=== PATIENT | male | born 1965 | race Caucasian/White ===

== ENCOUNTER 2017-10-14 19:10 | Inpatient (IN) | payer SELFPAY ==
[~2017-10-14] VITALS: Ht 175.3 cm; Wt 90.5 kg
[2017-10-14] MEDS ORDERED: SODIUM CHLORIDE 0.9% 1000ML BAG (SEPSIS BOLUS) IV ONE (20:00)
[2017-10-14 20:54] LABS: HEMATOCRIT. 34.4 % (42.0-52.0); HEMOGLOBIN. 11.9 g/dL (14.0-18.0); MEAN CORPUSCULAR HEMOGLOBIN 31.1 pg (28.0-32.0); MEAN CORPUSCULAR VOLUME 89.9 fL (80.0-94.0); MEAN PLATELET VOLUME 7.9 fl (7.4-10.4); PLATELET 463 x1000/uL (130-400); RED BLOOD CELL COUNT 3.82 mill/uL (4.7-6.1); RED CELL DISTRIBUTION WIDTH 13.6 % (11.6-14.6)
[2017-10-14 20:57] LABS: CHLORIDE 90 mEq/L (98-107)
[2017-10-14 20:59] LABS: INR 1.3; PROTHROMBIN TIME 12.8 sec (9.1-11.1)
[2017-10-14] MEDS ORDERED: CEFTRIAXONE 1 G PREMIX 50 ML IV ONE (21:00)
[2017-10-14] MEDS ORDERED: AZITHROMYCIN 500 MG in DEXT 5% WATER 250 ML IV ONE (21:00)
[2017-10-14 21:25] LABS: PLATELET ESTIMATE INCREASED
[2017-10-14 22:49] LABS: CLARITY URINE CLEAR (CLEAR); COLOR URINE YELLOW (YELLOW); KETONES URINE NEGATIVE (NEGATIVE); LEUKOCYTE ESTERASE URINE NEGATIVE (NEGATIVE); NITRITE URINE NEGATIVE (NEGATIVE); OCCULT BLOOD URINE NEGATIVE (NEGATIVE); PH URINE 6.5 (4.5-8.0); PROTEIN URINE NEGATIVE (NEGATIVE); SPECIFIC GRAVITY URINE 1.009 (1.005-1.030); UROBILINOGEN URINE 0.2 E.U./dL (0.2-1.0)
[2017-10-14] MEDS ORDERED: IPRATROPIUM/ALBUTEROL 0.5-3(2.5)MG/3ML NEB INH PRN (23:00)
[2017-10-14] MEDS ORDERED: AZITHROMYCIN 500 MG in DEXT 5% WATER 250 ML IV SCH (23:00)
[2017-10-14] MEDS ORDERED: DIPHENHYDRAMINE 50MG/ML VIAL IV PRN (23:00)
[2017-10-14] MEDS ORDERED: ACETAMINOPHEN 650MG/20.3ML UDC GT PRN (23:00)
[2017-10-14] MEDS ORDERED: HYDROCODONE/ACETAMINOPHEN 10/325MG TABLET PO PRN (23:00)
[2017-10-14] MEDS ORDERED: ONDANSETRON HCL 4MG/2ML INJ IV PRN (23:00)
[2017-10-14] MEDS ORDERED: CLONIDINE 0.1MG TABLET PO PRN (23:00)
[2017-10-14] MEDS ORDERED: CEFTRIAXONE 1 G PREMIX 50 ML IV SCH (23:00)
[2017-10-14] MEDS ORDERED: MAGNESIUM/ALUMINUM HYDROXIDE/SIMETHICONE 30ML UDC PO PRN (23:00)
[2017-10-14] MEDS ORDERED: NA PHOS,M-B/NA PHOS,DI-BA ENEMA 118ML PR PRN (23:00)
[2017-10-14] MEDS ORDERED: ACETAMINOPHEN 650MG SUPP PR PRN (23:00)
[2017-10-14] MEDS ORDERED: VANCOMYCIN 1 G PREMIX 200 ML IV SCH (23:00)
[2017-10-14] MEDS ORDERED: DOCUSATE SODIUM 100MG CAPSULE PO PRN (23:00)
[2017-10-15] VITALS (7 sets, daily range): BP systolic 92–110; BP diastolic 48–68
[2017-10-15] MEDS: HYDROCODONE/ACETAMINOPHEN 5/325MG TABLET PO PRN ×2 (01:50→09:24)
[2017-10-15] MEDS ORDERED: MVI, ADULT NO.1 10 ML, FOLIC ACID 1 MG, THIAMINE HCL 100 MG in SODIUM CHLORIDE 0.9% 1,0... IV SCH ×4 (03:00)
[2017-10-15 03:52] LABS: CLARITY URINE CLEAR (CLEAR); COLOR URINE YELLOW (YELLOW); KETONES URINE NEGATIVE (NEGATIVE); LEUKOCYTE ESTERASE URINE NEGATIVE (NEGATIVE); NITRITE URINE NEGATIVE (NEGATIVE); OCCULT BLOOD URINE NEGATIVE (NEGATIVE); PROTEIN URINE NEGATIVE (NEGATIVE); SPECIFIC GRAVITY URINE 1.011 (1.005-1.030); UROBILINOGEN URINE 0.2 E.U./dL (0.2-1.0)
[2017-10-15] MEDS ORDERED: VANCOMYCIN 1250MG in DEXTROSE 5% WATER 250ML IV NR (04:00)
[2017-10-15 05:14] LABS: *COCAINE SCREEN URINE NEGATIVE (NEGATIVE); CANNABINOID URINE SCREEN NEGATIVE (NEGATIVE); METHADONE URINE SCREEN NEGATIVE (NEGATIVE); OPIATES URINE SCREEN NEGATIVE (NEGATIVE); PHENCYCLIDINE URINE SCREEN NEGATIVE (NEGATIVE)
[2017-10-15 05:15] LABS: *AMPHETAMINES SCREEN URINE NEGATIVE (NEGATIVE); *BARBITURATES SCREEN URINE NEGATIVE (NEGATIVE); *BENZODIAZEPINES SCREEN URINE NEGATIVE (NEGATIVE)
[2017-10-15] MEDS: SODIUM CHLORIDE 0.9% INJ 3ML FLUSH IVF SCH ×3 (06:20→22:55)
[2017-10-15] MEDS: GUAIFENESIN 200MG/10ML SUGAR FREE UDC PO PRN (06:22)
[2017-10-15 07:28] LABS: BASOPHILS % 0.3 % (0.0-2.0); EOSINOPHILS % 0.4 % (0.0-5.0); HEMATOCRIT. 31.4 % (42.0-52.0); HEMOGLOBIN. 10.7 g/dL (14.0-18.0); LYMPHOCYTES % 7.1 % (20.0-50.0); MEAN CORPUSCULAR HEMOGLOBIN 30.9 pg (28.0-32.0); MEAN CORPUSCULAR VOLUME 90.8 fL (80.0-94.0); MEAN PLATELET VOLUME 7.6 fl (7.4-10.4); MONOCYTES % 7.6 % (2.0-8.0); NEUTROPHILS % 84.6 % (40.0-76.0); PLATELET 380 x1000/uL (130-400); RED BLOOD CELL COUNT 3.46 mill/uL (4.7-6.1); RED CELL DISTRIBUTION WIDTH 13.1 % (11.6-14.6)
[2017-10-15 07:52] LABS: CHLORIDE 94 mEq/L (98-107)
[2017-10-15] MEDS ORDERED: PNEUMOCOCCAL 23-VAL P-SAC VAC 0.5 ML IM ONE (08:00)
[2017-10-15 08:12] LABS: HDL CHOLESTEROL 26 mg/dL (40-59); LDL CHOLESTEROL 34 mg/dL (5-100)
[2017-10-15 08:14] LABS: CREATINE KINASE 55 IU/L (39-308)
[2017-10-15 08:16] LABS: CREATINE KINASE MB FRACTION 1.3 ng/mL (0.5-3.6)
[2017-10-15] MEDS ORDERED: INFLUENZA VIRUS VACCINE 0.5ML SYR IM ONE (10:00)
[2017-10-15] MEDS: IPRATROPIUM/ALBUTEROL 0.5-3(2.5)MG/3ML NEB INH SCH ×2 (12:00→20:51)
[2017-10-15] MEDS: VANCOMYCIN 1250MG in DEXTROSE 5% WATER 250ML IV SCH (13:06)
[2017-10-15] MEDS: ACETAMINOPHEN 325MG TABLET PO PRN ×2 (15:29→21:01)
[2017-10-15 15:55] LABS: CREATINE KINASE 41 IU/L (39-308)
[2017-10-15 15:56] LABS: CREATINE KINASE MB FRACTION < 1.0 ng/mL (0.5-3.6)
[2017-10-15] MEDS: CHLORDIAZEPOXIDE 25MG CAPSULE PO SCH (18:59)
[2017-10-15] MEDS: AZITHROMYCIN 500 MG in DEXT 5% WATER 250 ML IV SCH (21:01)
[2017-10-15] MEDS: CEFTRIAXONE 1 G PREMIX 50 ML IV SCH (22:53)
[2017-10-16] VITALS: BP 92/58
[2017-10-16] MEDS: VANCOMYCIN 1250MG in DEXTROSE 5% WATER 250ML IV SCH (01:53)
[2017-10-16] MEDS: GUAIFENESIN 200MG/10ML SUGAR FREE UDC PO PRN (01:53)
[2017-10-16] MEDS: IPRATROPIUM/ALBUTEROL 0.5-3(2.5)MG/3ML NEB INH SCH ×4 (01:59→21:29)
[2017-10-16] MEDS: HYDROCODONE/ACETAMINOPHEN 5/325MG TABLET PO PRN (03:25)
[2017-10-16 04:00] VITALS: BP 107/55
[2017-10-16] MEDS: CHLORDIAZEPOXIDE 25MG CAPSULE PO SCH ×3 (05:50→21:45)
[2017-10-16] MEDS: SODIUM CHLORIDE 0.9% INJ 3ML FLUSH IVF SCH ×3 (05:51→21:46)
[2017-10-16 08:00] VITALS: BP 102/65
[2017-10-16] MEDS: ACETAMINOPHEN 325MG TABLET PO PRN ×2 (11:35→17:24)
[2017-10-16 12:00] VITALS: BP 101/57
[2017-10-16 12:32] LABS: HEMATOCRIT. 30.3 % (42.0-52.0); HEMOGLOBIN. 10.1 g/dL (14.0-18.0); MEAN CORPUSCULAR HEMOGLOBIN 30.6 pg (28.0-32.0); MEAN CORPUSCULAR VOLUME 91.4 fL (80.0-94.0); MEAN PLATELET VOLUME 7.8 fl (7.4-10.4); PLATELET 354 x1000/uL (130-400); RED BLOOD CELL COUNT 3.31 mill/uL (4.7-6.1); RED CELL DISTRIBUTION WIDTH 13.4 % (11.6-14.6)
[2017-10-16 13:40] LABS: CHLORIDE 92 mEq/L (98-107)
[2017-10-16 16:00] VITALS: BP 104/63
[2017-10-16 17:15] LABS: PLATELET ESTIMATE NORMAL
[2017-10-16] MEDS: VANCOMYCIN 1500MG in DEXTROSE 5% WATER 250ML IV SCH (17:24)
[2017-10-16 20:00] VITALS: BP 106/62
[2017-10-16] MEDS: AZITHROMYCIN 500 MG in DEXT 5% WATER 250 ML IV SCH (21:45)
[2017-10-16] MEDS: CEFTRIAXONE 1 G PREMIX 50 ML IV SCH (21:45)
[2017-10-16] MEDS ORDERED: KETOROLAC 30MG/ML VIAL IV NR (23:00)
[2017-10-17] VITALS: BP 136/78
[2017-10-17] MEDS: IPRATROPIUM/ALBUTEROL 0.5-3(2.5)MG/3ML NEB INH SCH ×4 (01:27→21:09)
[2017-10-17] MEDS: VANCOMYCIN 1500MG in DEXTROSE 5% WATER 250ML IV SCH ×2 (01:36→07:57)
[2017-10-17 04:00] VITALS: BP 97/58
[2017-10-17] MEDS: SODIUM CHLORIDE 0.9% INJ 3ML FLUSH IVF SCH ×3 (06:31→22:09)
[2017-10-17] MEDS: CHLORDIAZEPOXIDE 25MG CAPSULE PO SCH ×2 (06:32→13:47)
[2017-10-17 08:00] VITALS: BP 115/59
[2017-10-17 12:00] VITALS: BP 133/81
[2017-10-17] MEDS ORDERED: BENZONATATE 100MG CAPSULE PO PRN (14:45)
[2017-10-17] MEDS: GUAIFENESIN 600MG ER TABLET PO SCH ×2 (15:57→20:14)
[2017-10-17] MEDS: VANCOMYCIN 1,750 MG in DEXT 5% WATER 500 ML IV SCH (15:58)
[2017-10-17 16:00] VITALS: BP 90/47
[2017-10-17] MEDS ORDERED: POTASSIUM CHLORIDE INJ 10 MEQ in DEXT 5%/0.9% NACL 1,000 ML IV SCH (16:00)
[2017-10-17] MEDS: ACETYLCYSTEINE 100MG/ML 10% VIAL 4ML INH SCH ×2 (16:11→21:10)
[2017-10-17 16:20] LABS: BASOPHILS % 0.5 % (0.0-2.0); EOSINOPHILS % 0.9 % (0.0-5.0); HEMATOCRIT. 30.3 % (42.0-52.0); HEMOGLOBIN. 10.4 g/dL (14.0-18.0); LYMPHOCYTES % 8.8 % (20.0-50.0); MEAN CORPUSCULAR HEMOGLOBIN 31.4 pg (28.0-32.0); MEAN CORPUSCULAR VOLUME 91.4 fL (80.0-94.0); MEAN PLATELET VOLUME 8.2 fl (7.4-10.4); MONOCYTES % 8.7 % (2.0-8.0); NEUTROPHILS % 81.1 % (40.0-76.0); PLATELET 357 x1000/uL (130-400); RED BLOOD CELL COUNT 3.31 mill/uL (4.7-6.1); RED CELL DISTRIBUTION WIDTH 13.3 % (11.6-14.6)
[2017-10-17 16:29] LABS: CHLORIDE 93 mEq/L (98-107)
[2017-10-17] MEDS: ACETAMINOPHEN 325MG TABLET PO PRN (17:36)
[2017-10-17] MEDS ORDERED: ALBUMIN HUMAN 25GM/100ML (25%) IV NR ×2 (18:30→20:00)
[2017-10-17] MEDS ORDERED: IOHEXOL-300 100 ML BOTTLE ONE ×2 (19:12→19:43)
[2017-10-17 20:00] VITALS: BP 105/60
[2017-10-17] MEDS: AZITHROMYCIN 500 MG in DEXT 5% WATER 250 ML IV SCH (21:11)
[2017-10-17] MEDS: CEFTRIAXONE 1 G PREMIX 50 ML IV SCH (22:09)
[2017-10-18] VITALS: BP 133/81
[2017-10-18] MEDS: VANCOMYCIN 1,750 MG in DEXT 5% WATER 500 ML IV SCH ×3 (01:52→17:33)
[2017-10-18] MEDS: IPRATROPIUM/ALBUTEROL 0.5-3(2.5)MG/3ML NEB INH SCH ×4 (02:08→21:43)
[2017-10-18 03:58] VITALS: BP 114/72
[2017-10-18] MEDS: ACETAMINOPHEN 325MG TABLET PO PRN ×2 (04:49→13:14)
[2017-10-18] MEDS: SODIUM CHLORIDE 0.9% INJ 3ML FLUSH IVF SCH ×3 (06:31→22:00)
[2017-10-18] MEDS: ACETYLCYSTEINE 100MG/ML 10% VIAL 4ML INH SCH ×2 (07:34→14:48)
[2017-10-18 08:00] VITALS: BP 108/70
[2017-10-18] MEDS: GUAIFENESIN 600MG ER TABLET PO SCH ×2 (08:15→21:06)
[2017-10-18 12:00] VITALS: BP 134/81
[2017-10-18 16:00] VITALS: BP 124/87
[2017-10-18 20:00] VITALS: BP 114/76
[2017-10-18] MEDS ORDERED: BISACODYL 10MG SUPP PR PRN (21:00)
[2017-10-18] MEDS ORDERED: DOCUSATE SODIUM 100MG CAPSULE PO SCH (21:00)
[2017-10-18] MEDS ORDERED: DIPHENHYDRAMINE 25MG CAPSULE PO PRN (21:00)
[2017-10-18] MEDS: AZITHROMYCIN 500 MG in DEXT 5% WATER 250 ML IV SCH (21:07)
[2017-10-18] MEDS: CEFTRIAXONE 1 G PREMIX 50 ML IV SCH (22:00)
[2017-10-19] VITALS: BP 122/84
[2017-10-19] MEDS: VANCOMYCIN 1,750 MG in DEXT 5% WATER 500 ML IV SCH ×2 (01:09→09:08)
[2017-10-19] MEDS: IPRATROPIUM/ALBUTEROL 0.5-3(2.5)MG/3ML NEB INH SCH ×4 (02:37→20:26)
[2017-10-19 04:00] VITALS: BP 109/67
[2017-10-19] MEDS: ACETAMINOPHEN 325MG TABLET PO PRN ×2 (04:50→16:47)
[2017-10-19] MEDS: SODIUM CHLORIDE 0.9% INJ 3ML FLUSH IVF SCH ×3 (05:05→20:52)
[2017-10-19] MEDS: ACETYLCYSTEINE 100MG/ML 10% VIAL 4ML INH SCH ×2 (07:33→20:26)
[2017-10-19 08:00] VITALS: BP 108/70
[2017-10-19] MEDS: GUAIFENESIN 600MG ER TABLET PO SCH ×2 (09:08→20:52)
[2017-10-19 12:00] VITALS: BP 107/66
[2017-10-19 16:00] VITALS: BP 107/70
[2017-10-19] MEDS: VANCOMYCIN 1500MG in DEXTROSE 5% WATER 250ML IV SCH (16:48)
[2017-10-19 17:07] LABS: BASOPHILS % 0.6 % (0.0-2.0); EOSINOPHILS % 1.5 % (0.0-5.0); HEMATOCRIT. 29.6 % (42.0-52.0); HEMOGLOBIN. 10.2 g/dL (14.0-18.0); LYMPHOCYTES % 8.6 % (20.0-50.0); MEAN CORPUSCULAR HEMOGLOBIN 31.1 pg (28.0-32.0); MEAN CORPUSCULAR VOLUME 90.4 fL (80.0-94.0); MEAN PLATELET VOLUME 8.1 fl (7.4-10.4); MONOCYTES % 8.2 % (2.0-8.0); NEUTROPHILS % 81.1 % (40.0-76.0); PLATELET 358 x1000/uL (130-400); RED BLOOD CELL COUNT 3.27 mill/uL (4.7-6.1); RED CELL DISTRIBUTION WIDTH 13.5 % (11.6-14.6)
[2017-10-19 17:20] LABS: CHLORIDE 92 mEq/L (98-107)
[2017-10-19 20:00] VITALS: BP 107/65
[2017-10-19] MEDS: AZITHROMYCIN 500 MG in DEXT 5% WATER 250 ML IV SCH (20:52)
[2017-10-19] MEDS: CEFTRIAXONE 1 G PREMIX 50 ML IV SCH (22:08)
[2017-10-20] VITALS (32 sets, daily range): BP systolic 103–205; BP diastolic 57–100
[2017-10-20] MEDS: VANCOMYCIN 1500MG in DEXTROSE 5% WATER 250ML IV SCH ×3 (01:09→18:38)
[2017-10-20] MEDS: ACETAMINOPHEN 325MG TABLET PO PRN ×2 (01:10→11:34)
[2017-10-20] MEDS: IPRATROPIUM/ALBUTEROL 0.5-3(2.5)MG/3ML NEB INH SCH ×3 (01:52→13:15)
[2017-10-20] MEDS: SODIUM CHLORIDE 0.9% INJ 3ML FLUSH IVF SCH ×2 (06:03→21:58)
[2017-10-20 06:32] LABS: INR 1.2; PROTHROMBIN TIME 11.6 sec (9.1-11.1)
[2017-10-20 06:41] LABS: BASOPHILS % 0.7 % (0.0-2.0); EOSINOPHILS % 1.6 % (0.0-5.0); HEMATOCRIT. 27.2 % (42.0-52.0); HEMOGLOBIN. 9.4 g/dL (14.0-18.0); LYMPHOCYTES % 10.2 % (20.0-50.0); MEAN CORPUSCULAR HEMOGLOBIN 31.4 pg (28.0-32.0); MEAN CORPUSCULAR VOLUME 90.3 fL (80.0-94.0); MEAN PLATELET VOLUME 8.1 fl (7.4-10.4); MONOCYTES % 9.3 % (2.0-8.0); NEUTROPHILS % 78.2 % (40.0-76.0); PLATELET 341 x1000/uL (130-400); RED BLOOD CELL COUNT 3.01 mill/uL (4.7-6.1); RED CELL DISTRIBUTION WIDTH 13.3 % (11.6-14.6)
[2017-10-20 07:00] LABS: CHLORIDE 98 mEq/L (98-107)
[2017-10-20] MEDS ORDERED: BACITRACIN 50,000 UNITS/VIAL ONE ×2 (08:06→12:51)
[2017-10-20] MEDS ORDERED: NORMAL SALINE 0.9% 10 ML SYR ONE ×2 (08:06→12:51)
[2017-10-20] MEDS ORDERED: SKIN ADHESIVE 0.7 GM EA TOP ONE ×2 (08:06→12:51)
[2017-10-20] MEDS: ACETYLCYSTEINE 100MG/ML 10% VIAL 4ML INH SCH ×3 (08:21→20:23)
[2017-10-20] MEDS: GUAIFENESIN 600MG ER TABLET PO SCH ×2 (08:35→21:00)
[2017-10-20] MEDS ORDERED: ROCURONIUM BROMIDE 10MG/ML VIAL 5ML IV ONE ×3 (12:29→15:58)
[2017-10-20] MEDS ORDERED: FENTANYL CITRATE/PF 50MCG/ML 5ML VIAL ONE ×3 (12:29→16:49)
[2017-10-20] MEDS ORDERED: PROPOFOL 200MG/20ML VIAL IV ONE (12:29)
[2017-10-20] MEDS ORDERED: MIDAZOLAM HCL 2 MG/2 ML VIAL ONE (12:29)
[2017-10-20] MEDS ORDERED: LIDOCAINE HCL/PF 1% 10 MG/ML 5ML VIAL ONE (12:30)
[2017-10-20] MEDS ORDERED: PHENYLEPHRINE HCL 10 MG/ML 1ML (IV VIAL) IV ONE (12:30)
[2017-10-20] MEDS ORDERED: DEXAMETHASONE 4MG/ML 1ML VIAL ONE (12:30)
[2017-10-20] MEDS ORDERED: ONDANSETRON HCL 4MG/2ML INJ ONE (12:30)
[2017-10-20] MEDS ORDERED: KETOROLAC 30MG/ML VIAL ONE (12:30)
[2017-10-20] MEDS ORDERED: METOCLOPRAMIDE HCL 10MG/2ML VIAL ONE (12:30)
[2017-10-20] MEDS ORDERED: TETRACAINE/BENZOCAINE/BUTAMBEN 20 GM SPRAY MM ONE ×2 (12:46→13:37)
[2017-10-20] MEDS ORDERED: BUPIVACAINE HCL/EPINEPHRINE 0.5%/0.0005 30ML ONE (12:51)
[2017-10-20] MEDS ORDERED: ALBUMIN HUMAN 12.5G/250ML (5%) IV ONE (13:13)
[2017-10-20] MEDS ORDERED: VECURONIUM BROMIDE 10 MG/VIAL IV ONE ×2 (15:56→16:55)
[2017-10-20] MEDS ORDERED: ESMOLOL HCL 10MG/ML 10ML VIAL IV ONE (16:54)
[2017-10-20] MEDS ORDERED: SODIUM CHLORIDE 0.9% 500 ML IV PRN (17:11)
[2017-10-20] MEDS ORDERED: ALBUMIN HUMAN 12.5G/250ML (5%) IV PRN (17:15)
[2017-10-20] MEDS ORDERED: OXYCODONE HCL/ACETAMINOPHEN 5/325MG TABLET PO PRN (17:15)
[2017-10-20] MEDS ORDERED: ONDANSETRON HCL 4MG/2ML INJ IV PRN (17:15)
[2017-10-20] MEDS ORDERED: ACETAMINOPHEN 325MG TABLET PO PRN (17:15)
[2017-10-20] MEDS ORDERED: DOCUSATE SODIUM 100MG CAPSULE PO SCH (17:30)
[2017-10-20 17:36] LABS: BG BASE EXCESS -5.5 mmol/L (-2.0-2.0); BG CARBOXYHEMOGLOBIN 0.8 % (0.5-1.5); BG DEOXYHEMOGLOBIN 0.9 % (0.0-5.0); BG HCO3 ACT 23.4 mmol/L (22.0-26.0); BG METHEMOGLOBIN 0.7 % (0.0-1.5); BG OXYGEN SATURATION 99.1 % (92.0-98.5); BG OXYHEMOGLOBIN 97.6 % (94.0-97.0); BG PCO2 59.9 mmHg (35.0-45.0); BG PO2 214.3 mmHg (75.0-100.0); BG SAMPLE SITE A-LINE; BG TIDAL VOLUME(mL) 500 mL; BG TOTAL HEMOGLOBIN 14.9 g/dL (12.0-18.0); BG VENT MODE VENT - A/C; BG VENT RATE 12 set
[2017-10-20] MEDS ORDERED: SODIUM BICARBONATE 8.4% 1 MEQ/ML 50ML SYR IV ONE (17:48)
[2017-10-20 18:05] LABS: HEMATOCRIT. 33.1 % (42.0-52.0); HEMOGLOBIN. 10.9 g/dL (14.0-18.0); MEAN CORPUSCULAR HEMOGLOBIN 30.2 pg (28.0-32.0); MEAN CORPUSCULAR VOLUME 91.4 fL (80.0-94.0); PLATELET 345 x1000/uL (130-400); RED BLOOD CELL COUNT 3.62 mill/uL (4.7-6.1); RED CELL DISTRIBUTION WIDTH 13.6 % (11.6-14.6)
[2017-10-20 18:06] LABS: CHLORIDE 100 mEq/L (98-107)
[2017-10-20] MEDS: MAGNESIUM HYDROXIDE 400MG/5ML 30ML UDC PO SCH ×2 (18:25→21:31)
[2017-10-20] MEDS: DEXT 5%/0.45% NACL 1000ML 1,000 ML IV SCH (18:26)
[2017-10-20] MEDS: IPRATROPIUM/ALBUTEROL 0.5-3(2.5)MG/3ML NEB HHN SCH (20:24)
[2017-10-20 20:57] LABS: PLATELET ESTIMATE NORMAL
[2017-10-20] MEDS: MAGNESIUM/ALUMINUM HYDROXIDE/SIMETHICONE 30ML UDC NG SCH (21:31)
[2017-10-20] MEDS: AZITHROMYCIN 500 MG in DEXT 5% WATER 250 ML IV SCH (21:44)
[2017-10-20] MEDS: CEFTRIAXONE 1 G PREMIX 50 ML IV SCH (22:00)
[2017-10-21] VITALS (35 sets, daily range): BP systolic 104–135; BP diastolic 53–90
[2017-10-21] MEDS: IPRATROPIUM/ALBUTEROL 0.5-3(2.5)MG/3ML NEB HHN SCH ×7 (00:15→20:54)
[2017-10-21] MEDS: VANCOMYCIN 1500MG in DEXTROSE 5% WATER 250ML IV SCH ×3 (00:24→18:31)
[2017-10-21] MEDS: MAGNESIUM HYDROXIDE 400MG/5ML 30ML UDC PO SCH ×5 (00:26→18:31)
[2017-10-21] MEDS: MAGNESIUM/ALUMINUM HYDROXIDE/SIMETHICONE 30ML UDC NG SCH ×4 (00:26→12:00)
[2017-10-21 01:17] LABS: CHLORIDE 98 mEq/L (98-107)
[2017-10-21 01:18] LABS: HEMATOCRIT. 31.2 % (42.0-52.0); HEMOGLOBIN. 10.5 g/dL (14.0-18.0); MEAN CORPUSCULAR HEMOGLOBIN 30.6 pg (28.0-32.0); MEAN CORPUSCULAR VOLUME 90.6 fL (80.0-94.0); MEAN PLATELET VOLUME 7.9 fl (7.4-10.4); PLATELET 330 x1000/uL (130-400); RED BLOOD CELL COUNT 3.44 mill/uL (4.7-6.1); RED CELL DISTRIBUTION WIDTH 13.9 % (11.6-14.6)
[2017-10-21] MEDS: SODIUM CHLORIDE 0.9% INJ 3ML FLUSH IVF SCH ×3 (05:13→22:00)
[2017-10-21 05:15] LABS: HEMATOCRIT. 28.9 % (42.0-52.0); HEMOGLOBIN. 9.8 g/dL (14.0-18.0); MEAN CORPUSCULAR HEMOGLOBIN 30.5 pg (28.0-32.0); MEAN CORPUSCULAR VOLUME 89.3 fL (80.0-94.0); MEAN PLATELET VOLUME 8.2 fl (7.4-10.4); PLATELET 338 x1000/uL (130-400); RED BLOOD CELL COUNT 3.23 mill/uL (4.7-6.1); RED CELL DISTRIBUTION WIDTH 13.5 % (11.6-14.6)
[2017-10-21 05:16] LABS: CHLORIDE 99 mEq/L (98-107)
[2017-10-21 06:47] LABS: PLATELET ESTIMATE NORMAL
[2017-10-21 07:40] LABS: BG BASE EXCESS -3.3 mmol/L (-2.0-2.0); BG CARBOXYHEMOGLOBIN 0.3 % (0.5-1.5); BG DEOXYHEMOGLOBIN 1.6 % (0.0-5.0); BG FRACTION INSPIRED OXYGEN 70; BG HCO3 ACT 19.2 mmol/L (22.0-26.0); BG METHEMOGLOBIN 0.1 % (0.0-1.5); BG OXYGEN SATURATION 98.4 % (92.0-98.5); BG PCO2 26.3 mmHg (35.0-45.0); BG PH 7.481 (7.350-7.450); BG PO2 130.6 mmHg (75.0-100.0); BG SAMPLE SITE A-LINE; BG TIDAL VOLUME(mL) 500 mL; BG VENT MODE VENT - A/C; BG VENT RATE 12 set
[2017-10-21] MEDS: MORPHINE SULFATE 4 MG/ML CPJ (NOT FOR IM USE) IV PRN ×3 (07:53→16:54)
[2017-10-21 07:57] LABS: PLATELET ESTIMATE NORMAL
[2017-10-21] MEDS: ACETYLCYSTEINE 100MG/ML 10% VIAL 4ML INH SCH ×2 (08:15→17:23)
[2017-10-21] MEDS: GUAIFENESIN 600MG ER TABLET PO SCH ×2 (08:17→20:36)
[2017-10-21] MEDS ORDERED: DOCUSATE SODIUM SUGAR FREE 100MG/10ML UDC NG SCH (09:00)
[2017-10-21] MEDS: FAMOTIDINE 20MG/2ML VIAL IV SCH (09:34)
[2017-10-21 13:09] LABS: BG BASE EXCESS 3.1 mmol/L (-2.0-2.0); BG CARBOXYHEMOGLOBIN 0.3 % (0.5-1.5); BG DEOXYHEMOGLOBIN 6.9 % (0.0-5.0); BG FRACTION INSPIRED OXYGEN 40; BG HCO3 ACT 26.4 mmol/L (22.0-26.0); BG METHEMOGLOBIN 0.5 % (0.0-1.5); BG OXYHEMOGLOBIN 92.3 % (94.0-97.0); BG PCO2 35.6 mmHg (35.0-45.0); BG PH 7.488 (7.350-7.450); BG PO2 64.2 mmHg (75.0-100.0); BG PRESSURE SUPPORT 8; BG SAMPLE SITE RIGHT BRACHIAL; BG TOTAL HEMOGLOBIN 10.4 g/dL (12.0-18.0); BG VENT MODE VENT - CPAP
[2017-10-21] MEDS: DEXT 5%/0.45% NACL 1000ML 1,000 ML IV SCH ×2 (15:08→20:37)
[2017-10-21] MEDS ORDERED: MAGNESIUM/ALUMINUM HYDROXIDE/SIMETHICONE 30ML UDC PO PRN (16:00)
[2017-10-21] MEDS: DOCUSATE SODIUM 100MG CAPSULE PO SCH (18:31)
[2017-10-21] MEDS: OXYCODONE HCL/ACETAMINOPHEN 5/325MG TABLET PO PRN (20:36)
[2017-10-21] MEDS: AZITHROMYCIN 500 MG in DEXT 5% WATER 250 ML IV SCH (20:36)
[2017-10-21] MEDS: CEFTRIAXONE 1 G PREMIX 50 ML IV SCH (23:40)
[2017-10-22] VITALS (24 sets, daily range): BP systolic 89–130; BP diastolic 65–88
[2017-10-22] MEDS: IPRATROPIUM/ALBUTEROL 0.5-3(2.5)MG/3ML NEB HHN SCH ×6 (01:01→20:37)
[2017-10-22] MEDS: VANCOMYCIN 1500MG in DEXTROSE 5% WATER 250ML IV SCH ×2 (02:09→09:11)
[2017-10-22] MEDS: ACETYLCYSTEINE 100MG/ML 10% VIAL 4ML INH SCH ×2 (04:14→07:27)
[2017-10-22] MEDS: ACETAMINOPHEN 325MG TABLET PO PRN (06:35)
[2017-10-22] MEDS: SODIUM CHLORIDE 0.9% INJ 3ML FLUSH IVF SCH ×3 (06:35→21:09)
[2017-10-22] MEDS: FAMOTIDINE 20MG/2ML VIAL IV SCH (09:11)
[2017-10-22] MEDS: DOCUSATE SODIUM 100MG CAPSULE PO SCH ×2 (09:11→17:46)
[2017-10-22] MEDS: GUAIFENESIN 600MG ER TABLET PO SCH ×2 (09:11→21:09)
[2017-10-22 09:56] LABS: BASOPHILS % 0.5 % (0.0-2.0); EOSINOPHILS % 0.2 % (0.0-5.0); HEMATOCRIT. 26.4 % (42.0-52.0); HEMOGLOBIN. 9.1 g/dL (14.0-18.0); LYMPHOCYTES % 7.7 % (20.0-50.0); MEAN CORPUSCULAR HEMOGLOBIN 31.1 pg (28.0-32.0); MEAN CORPUSCULAR VOLUME 89.9 fL (80.0-94.0); MONOCYTES % 8.1 % (2.0-8.0); NEUTROPHILS % 83.5 % (40.0-76.0); PLATELET 335 x1000/uL (130-400); RED BLOOD CELL COUNT 2.94 mill/uL (4.7-6.1); RED CELL DISTRIBUTION WIDTH 13.6 % (11.6-14.6)
[2017-10-22 10:00] LABS: CHLORIDE 96 mEq/L (98-107)
[2017-10-22] MEDS: OXYCODONE HCL/ACETAMINOPHEN 5/325MG TABLET PO PRN (10:59)
[2017-10-22] MEDS: DEXT 5%/0.45% NACL 1000ML 1,000 ML IV SCH ×2 (12:31→23:18)
[2017-10-22] MEDS: AZITHROMYCIN 500 MG in DEXT 5% WATER 250 ML IV SCH (21:09)
[2017-10-22] MEDS: CEFTRIAXONE 1 G PREMIX 50 ML IV SCH (23:18)
[2017-10-23] VITALS (20 sets, daily range): BP systolic 92–142; BP diastolic 47–83
[2017-10-23] MEDS: IPRATROPIUM/ALBUTEROL 0.5-3(2.5)MG/3ML NEB HHN SCH ×7 (00:30→21:05)
[2017-10-23] MEDS: SODIUM CHLORIDE 0.9% INJ 3ML FLUSH IVF SCH ×3 (06:25→22:19)
[2017-10-23] MEDS: OXYCODONE HCL/ACETAMINOPHEN 5/325MG TABLET PO PRN ×2 (07:45→15:51)
[2017-10-23 09:33] LABS: CHLORIDE 93 mEq/L (98-107)
[2017-10-23 09:35] LABS: BASOPHILS % 0.4 % (0.0-2.0); EOSINOPHILS % 0.3 % (0.0-5.0); HEMATOCRIT. 26.2 % (42.0-52.0); HEMOGLOBIN. 9.1 g/dL (14.0-18.0); LYMPHOCYTES % 9.5 % (20.0-50.0); MEAN CORPUSCULAR HEMOGLOBIN 31.4 pg (28.0-32.0); MEAN CORPUSCULAR VOLUME 90.2 fL (80.0-94.0); MEAN PLATELET VOLUME 8.4 fl (7.4-10.4); MONOCYTES % 8.2 % (2.0-8.0); NEUTROPHILS % 81.6 % (40.0-76.0); PLATELET 388 x1000/uL (130-400); RED BLOOD CELL COUNT 2.91 mill/uL (4.7-6.1)
[2017-10-23 09:42] LABS: PHOSPHORUS 3.5 mg/dL (2.5-4.9)
[2017-10-23] MEDS: FAMOTIDINE 20MG TABLET PO SCH (10:33)
[2017-10-23] MEDS: DOCUSATE SODIUM 100MG CAPSULE PO SCH ×2 (10:33→16:51)
[2017-10-23] MEDS: GUAIFENESIN 600MG ER TABLET PO SCH ×2 (10:33→22:18)
[2017-10-23] MEDS: AZITHROMYCIN 500 MG in DEXT 5% WATER 250 ML IV SCH (21:00)
[2017-10-23] MEDS: CEFTRIAXONE 1 G PREMIX 50 ML IV SCH (22:00)
[2017-10-23] MEDS: BISACODYL 5MG TABLET PO PRN (22:17)
[2017-10-23] MEDS: MORPHINE SULFATE 4 MG/ML CPJ (NOT FOR IM USE) IV PRN (22:18)
[2017-10-24] VITALS (12 sets, daily range): BP systolic 102–175; BP diastolic 37–77
[2017-10-24] MEDS: IPRATROPIUM/ALBUTEROL 0.5-3(2.5)MG/3ML NEB HHN SCH ×5 (00:22→21:16)
[2017-10-24] MEDS: ACETAMINOPHEN 325MG TABLET PO PRN (00:37)
[2017-10-24] MEDS: CEFTRIAXONE 1 G PREMIX 50 ML IV SCH (00:37)
[2017-10-24] MEDS: AZITHROMYCIN 500 MG in DEXT 5% WATER 250 ML IV SCH (01:24)
[2017-10-24] MEDS: SODIUM CHLORIDE 0.9% INJ 3ML FLUSH IVF SCH ×3 (05:49→20:20)
[2017-10-24] MEDS: DOCUSATE SODIUM 100MG CAPSULE PO SCH ×2 (08:20→16:23)
[2017-10-24] MEDS: GUAIFENESIN 600MG ER TABLET PO SCH ×2 (08:20→20:20)
[2017-10-24] MEDS: FAMOTIDINE 20MG TABLET PO SCH (08:20)
[2017-10-24 09:12] LABS: HEMATOCRIT. 26.6 % (42.0-52.0); HEMOGLOBIN. 9.1 g/dL (14.0-18.0); MEAN CORPUSCULAR HEMOGLOBIN 31.1 pg (28.0-32.0); MEAN CORPUSCULAR VOLUME 90.7 fL (80.0-94.0); PLATELET 374 x1000/uL (130-400); RED BLOOD CELL COUNT 2.94 mill/uL (4.7-6.1); RED CELL DISTRIBUTION WIDTH 13.9 % (11.6-14.6)
[2017-10-24 10:27] LABS: ATYPICAL LYMPHOCYTES 1; PLATELET ESTIMATE NORMAL
[2017-10-24] MEDS: OXYCODONE HCL/ACETAMINOPHEN 5/325MG TABLET PO PRN ×2 (15:36→20:33)
[2017-10-24] MEDS: BISACODYL 5MG TABLET PO PRN (20:31)
[2017-10-25] VITALS (12 sets, daily range): BP systolic 101–139; BP diastolic 59–87
[2017-10-25] MEDS: IPRATROPIUM/ALBUTEROL 0.5-3(2.5)MG/3ML NEB HHN SCH ×6 (00:38→21:00)
[2017-10-25] MEDS: CEFTRIAXONE 1 G PREMIX 50 ML IV SCH (00:44)
[2017-10-25] MEDS: AZITHROMYCIN 500 MG in DEXT 5% WATER 250 ML IV SCH (01:58)
[2017-10-25] MEDS: SODIUM CHLORIDE 0.9% INJ 3ML FLUSH IVF SCH ×3 (06:34→20:28)
[2017-10-25] MEDS: DOCUSATE SODIUM 100MG CAPSULE PO SCH ×2 (08:28→16:56)
[2017-10-25] MEDS: FAMOTIDINE 20MG TABLET PO SCH (08:28)
[2017-10-25] MEDS: GUAIFENESIN 600MG ER TABLET PO SCH ×2 (08:28→20:27)
[2017-10-25] MEDS: OXYCODONE HCL/ACETAMINOPHEN 5/325MG TABLET PO PRN (08:33)
[2017-10-25 19:36] LABS: HEMATOCRIT. 28.9 % (42.0-52.0); HEMOGLOBIN. 9.5 g/dL (14.0-18.0); MEAN CORPUSCULAR VOLUME 91.3 fL (80.0-94.0); MEAN PLATELET VOLUME 8.2 fl (7.4-10.4); PLATELET 436 x1000/uL (130-400); RED BLOOD CELL COUNT 3.17 mill/uL (4.7-6.1)
[2017-10-25 19:57] LABS: CHLORIDE 92 mEq/L (98-107)
[2017-10-25 20:15] LABS: PLATELET ESTIMATE INCREASED
[2017-10-25] MEDS: ACETAMINOPHEN WITH CODEINE 300/30MG TABLET PO PRN (20:27)
[2017-10-26] VITALS (14 sets, daily range): BP systolic 105–130; BP diastolic 52–83
[2017-10-26] MEDS: CEFTRIAXONE 1 G PREMIX 50 ML IV SCH (00:23)
[2017-10-26] MEDS: AZITHROMYCIN 500 MG in DEXT 5% WATER 250 ML IV SCH (01:04)
[2017-10-26] MEDS: IPRATROPIUM/ALBUTEROL 0.5-3(2.5)MG/3ML NEB HHN SCH ×4 (01:11→11:43)
[2017-10-26] MEDS: ACETAMINOPHEN WITH CODEINE 300/30MG TABLET PO PRN ×2 (03:29→14:22)
[2017-10-26] MEDS: SODIUM CHLORIDE 0.9% INJ 3ML FLUSH IVF SCH (05:58)
[2017-10-26] MEDS: DOCUSATE SODIUM 100MG CAPSULE PO SCH (08:53)
[2017-10-26] MEDS: FAMOTIDINE 20MG TABLET PO SCH (08:53)
[2017-10-26] MEDS: GUAIFENESIN 600MG ER TABLET PO SCH (08:54)
== END 2017-10-26 15:10 | disposition home or self-care (01) | DRG 720 ==
LOC: ER 20:05 → 6WST 20:57 → EDBEDREQSVC 21:01 → EDBEDREQTM 21:01 → EDBEDREQ 21:01 → ENRESERV 22:50 → CVICU 10-20 15:08 → 3WST 10-23 12:20
PROVIDERS: ADMIT Family Medicine; ATTEND Family Medicine
PROC: 0BNL0ZZ Release Left Lung, Open Approach (ICD-10-PCS; 2017-10-20)
PROC: 30233N1 Transfusion of Nonautologous Red Blood Cells into Peripheral Vein, Percutaneous Approach (ICD-10-PCS; 2017-10-20)
PROC: 0W9B00Z Drainage of Left Pleural Cavity with Drainage Device, Open Approach (ICD-10-PCS; principal; 2017-10-20 12:30)
DX: A41.9 Sepsis, unspecified organism (principal); J86.9 Pyothorax without fistula; E43 Unspecified severe protein-calorie malnutrition; J96.00 Acute respiratory failure, unspecified whether with hypoxia or hypercapnia; J18.1 Lobar pneumonia, unspecified organism; J90 Pleural effusion, not elsewhere classified; E66.9 Obesity, unspecified; K59.00 Constipation, unspecified; E87.1 Hypo-osmolality and hyponatremia; Z79.899 Other long term (current) drug therapy; Z87.891 Personal history of nicotine dependence; Z68.29 Body mass index [BMI] 29.0-29.9, adult
CPT/HCPCS: 36415; 36600; 71045; 71260; 80048; 80053; 80061; 80202; 80305; 81003; 82375; 82550; 82553; 82805; 82945; 82962; 83605; 83615; 83735; 83880; 83930; 84100; 84157; 84484; 85007; 85025; 85027; 85610; 86850; 86900; 86920; 87040; 87070; 87075; 87086; 87106; 87116; 87205; 87430; 87804; 88108; 88307; 88312; 89050; 93005; 94003; 94640; 96365; 96367; 97116; 97162; 99285; A4216; A7042; C1725; J0171; J0456; J0696; J1100; J1885; J2250; J2270; J2370; J2405; J2704; J2765; J3010; J3370; J3411; J3480; J3490; J7030; J7040; J7042; J7050; J7060; J7608; J7620; P9016; P9041; P9047; Q9967